=== PATIENT | female | born 2000 | race Caucasian/White ===

== ENCOUNTER 2024-09-27 04:42 | Emergency (ER) | payer SELFPAY ==
[~2024-09-27] VITALS: Ht 165.1 cm; Wt 46.0 kg
[2024-09-27 04:58] VITALS: O2SAT 99
[2024-09-27] MEDS: KETOROLAC 15MG/ML VIAL IM ONE (05:45)
[2024-09-27] MEDS: ACETAMINOPHEN 325MG TABLET PO ONE (09:07)
[2024-09-27] MEDS ORDERED: NAPR-681 MT (10:01)
[2024-09-27 10:58] VITALS: BP 111/75; PULSE 91; RESP 16; TEMP 38.1; O2SAT 99
== END 2024-09-27 11:18 | disposition home or self-care (01) ==
LOC: ER 04:42
DX: M25.512 Pain in left shoulder (principal); M25.522 Pain in left elbow; R07.89 Other chest pain; Z88.0 Allergy status to penicillin; V89.2XXA Person injured in unspecified motor-vehicle accident, traffic, initial encounter; Y93.89 Activity, other specified; Y92.89 Other specified places as the place of occurrence of the external cause; Y99.8 Other external cause status
CPT/HCPCS: 99284; 71045; 73030; 73060; 73080; 93005; 96372; J1885